=== PATIENT | male | born 1960 | race Caucasian/White ===

== ENCOUNTER → 2020-04-14 | Outpatient (CLI) | payer OTHER | END | disposition home or self-care (01) | LOC: CVU 09:45 | PROVIDERS: ATTEND Psychiatry & Neurology Neurology | DX: I08.8 Other rheumatic multiple valve diseases (principal); G45.1 Carotid artery syndrome (hemispheric); G43.109 Migraine with aura, not intractable, without status migrainosus | CPT/HCPCS: 93306 ==